=== PATIENT | male | born 1985 | race Caucasian/White ===

== ENCOUNTER → 2019-07-04 | Outpatient (CLI) | payer BC ==
[2019-07-04 12:19] LABS: Appearance,Urine Clear (Clear); Bilirubin,Urine Negative (Negative); Blood,Urine Negative (Negative); Color,Urine Yellow; Glucose,Urine (UA) Negative (Negative); Ketones,Urine 2+ (Negative); Leukocyte Esterase,Urine Negative (Negative); Nitrite,Urine Negative (Negative); PH, Urine 7.5 (5.0-8.0); Protein,Urine Trace (Negative); Specific Gravity,Urine 1.029 (1.001-1.035); Urobilinogen,Urine <2.0 mg/dL (<2.0)
[2019-07-04 12:47] LABS: Basophils % (A) 1 %; Eosinophils # (A) 0.3 k/uL (0-0.7); Eosinophils % (A) 8 %; HCT 48.8 % (39.0-53.0); HGB 15.8 gm/dL (13.0-17.5); Lymphocytes # (A) 1.3 k/uL (1.0-4.8); Lymphocytes % (A) 29 %; MCH 30.7 pg (25.0-35.0); MCHC 32.4 g/dL (31.0-37.0); MCV 94.8 fL (80.0-100.0); Mean Platelet Volume 6.8; Monocytes # (A) 0.3 k/uL (0-1.0); Monocytes % (A) 6 %; Neutrophils # (A) 2.2 k/uL (1.3-7.7); Neutrophils % (A) 52 %; Platelet Count 264 k/uL (150-450); RBC 5.14 m/uL (4.30-5.90); RDW 12.7 % (11.5-15.5); WBC 4.3 k/uL (3.8-10.6)
[2019-07-04 16:56] LABS: ALT 18 U/L (10-49); AST 26 U/L (14-35); African American GFR (CKD) 112.5 (60.0-200.0); Albumin/Globulin Ratio 1.95 (1.60-3.17); Alkaline Phosphatase 60 U/L (41-126); Calcium 9.4 mg/dL (8.7-10.3); Carbon Dioxide 29.1 mmol/L (21.6-31.8); Chloride 105 mmol/L (96-109); Cholesterol 204 mg/dL (0-200); Globulin 2.2 g/dL (1.6-3.3); Glucose 83 mg/dL (70-110); Potassium 4.4 mmol/L (3.5-5.5); Sodium 143 mmol/L (135-145); Total Bilirubin 2.6 mg/dL (0.3-1.2); Total Protein 6.5 g/dL (6.2-8.2); Triglycerides <50.0 mg/dL (0.0-149.0); VLDL Calculation 9.98 mg/dL (5.00-40.00)
== END | disposition home or self-care (01) ==
LOC: LABWHC1 11:00
PROVIDERS: ATTEND Family Medicine
DX: Z00.00 Encounter for general adult medical examination without abnormal findings (principal); N52.9 Male erectile dysfunction, unspecified; Z98.52 Vasectomy status
CPT/HCPCS: 36415; 80053; 80061; 81003; 82040; 84270; 84403; 84439; 84443; 85025

== ENCOUNTER → 2019-08-22 | Outpatient (CLI) | payer BC ==
[2019-08-22 16:22] LABS: Bilirubin, Conjugated 0.5 mg/dL (0.20-0.40); Bilirubin,Unconjugated 1.2 mg/dL; Total Bilirubin 1.7 mg/dL (0.2-1.2)
== END | disposition home or self-care (01) ==
LOC: LABWHC1 11:50
PROVIDERS: ATTEND Family Medicine
DX: R17 Unspecified jaundice (principal)
CPT/HCPCS: 36415; 82248

== ENCOUNTER 2019-09-05 20:13 | Emergency (ER) | payer BC ==
[2019-09-05 20:22] VITALS: BP 135/66; PULSE 107; RESP 17; TEMP 97.9
[2019-09-05] MEDS ORDERED: PROPARACAINE 0.5% OPHTH DROPS 15 ML BTL LEFT EYE STA (20:59)
--- NOTE | 2019-09-05 21:32 | ED ---
Eye Problem HPI - General Chief complaint: Eye Problems Stated complaint: L eye irritation Source: patient Mode of arrival: ambulatory Limitations: no limitations - History of Present Illness Initial comments: 34-year-old male presents emergency department for chief complaint of left eye irritation. Patient states today he was working with safety glasses to [employer]. he states there was a lot of sawdust that was coming from down when. patient states that he is unsure if something had gotten in his eye but throughout the afternoon he had eye irritation and photophobia. patient denies any redness swelling surrounding the eye or eye drainage. patient denies any headache nausea vomiting. she denies any loss of vision. patient states his eyes are very watery. patient was concerned that there was a piece of wood chip in his eye presents emergency department for further evaluation. patient states he has extensively irrigated his eyes throughout the day. remaining review of system negative. upon arrival patient appears well signs of acute distress however obvious photophobia. - Related Data Previous Rx's Medication Instructions Recorded Ciprofloxacin Ophth Soln [Cipro 1 drops LEFT EYE Q1HR 7 Days #1 09/05/19 0.3% Ophth Soln] bottle Allergies Allergy/AdvReac Type Severity Reaction Status Date / Time No Known Allergies Allergy Verified 09/05/19 20:22 Review of Systems ROS Statement: Those systems with pertinent positive or pertinent negative responses have been documented in the HPI. ROS Other: All systems not noted in ROS Statement are negative. Past Medical History Past Medical History: No Reported History History of Any Multi-Drug Resistant Organisms: MRSA Date of last positivie culture/infection: arm MDRO Source:: 2019 Past Surgical History: Orthopedic Surgery Additional Past Surgical History / Comment(s): nasal, foot Past Psychological History: No Psychological Hx Reported Smoking Status: Never smoker Past Alcohol Use History: None Reported Past Drug Use History: None Reported General Exam - General Exam Comments Initial Comments: General: The patient is awake and alert, in no distress, and does not appear acutely ill. Eye: +3 mm pupils are equal, round and reactive to light, extra-ocular movements are intact. No nystagmus. There is normal conjunctiva of the right eye. Patient has mild conjunctival injection of the left eye. No obvious ulceration or cloudiness of the cornea. No evidence of obvious foreign body. No signs of icterus. With fluorescein examination there is a circular area of uptake on the left lateral aspect of the eye less than 1/4cm. Patient has no evidence of FB. Photophobia, relief with proparacaine. Ears, nose, mouth and throat: There are moist mucous membranes and no oral lesions. . Cardiovascular: There is a regular rate and rhythm. No murmur, rub or gallop is appreciated. Respiratory: Lungs are clear to auscultation, respirations are non-labored, breath sounds are equal. No wheezes, stridor, rales, or rhonchi. Gastrointestinal: Soft, non-distended, non-tender abdomen without masses or organomegaly noted. There is no rebound or guarding present. Musculoskeletal: Normal ROM, no tenderness. Strength 5/5. Sensation intact. Pulses equal bilaterally 2+. Neurological: A&O x 3. CN II-XII intact grossly, There are no obvious motor or sensory deficits. Coordination appears grossly intact. Speech is normal. Skin: Skin is warm and dry and no rashes or lesions are noted. Psychiatric: Cooperative, appropriate mood & affect, normal judgment. Limitations: no limitations Course Vital Signs 09/05/19 20:19 Temperature 97.9 F Pulse Rate 107 H Respiratory 17 Rate Blood Pressure 135/66 O2 Sat by Pulse 98 Oximetry Medical Decision Making - Medical Decision Making 34-year-old male presenting for cc of left eye irriation. There is a circular uptake of fluorescein on physical examination. Patient does wear contact lenses. Given the appearance of the forcing uptake concern for possible corneal ulcer as differential diagnosis, with history there is concerned that this could be a corneal abrasion. Negative Magaly sign. Visual acuity within acceptable limits. Ophthalmology was consulted to talk to Dr. chris shah who recommended follow-up on Saturday and every hour ciprofloxacin drops. Patient is agreeable to this care plan and discharged appears well returned premeasured discussed patient was discharged with starter pack of medication. Discussed case with attending provider Dr. Langford is agreeable to plan and discharged. Disposition Clinical Impression: Corneal abrasion Disposition: HOME SELF-CARE Condition: Good Instructions (If sedation given, give patient instructions): Corneal Abrasion (ED), Corneal Ulcer (ED) Additional Instructions: Please use medication as discussed. Please follow-up with ophthalmology on Saturday at 8 AM. Address is seen below. Please continue to use the antibiotics drops every hour in the left eye instrumented morning given further instructions from ophthalmology. Please return to emergency room if the symptoms increase or worsen or for any other concerns. Prescriptions: Ciprofloxacin Ophth Soln [Cipro 0.3% Ophth Soln] 1 drops LEFT EYE Q1HR 7 Days #1 bottle Is patient prescribed a controlled substance at d/c from ED?: No Referrals: Luis Kingsley DO [Primary Care Provider] - 1-2 days Blu De León MD [STAFF PHYSICIAN] - 1-2 days Time of Disposition: 21:59
[2019-09-05] MEDS ORDERED: CIPROFLOXACIN 0.3% OPHTH SOLN 5 ML BTL LEFT EYE STA (21:44)
== END 2019-09-05 22:04 | disposition home or self-care (01) ==
LOC: EC 20:13
DX: S05.02XA Injury of conjunctiva and corneal abrasion without foreign body, left eye, initial encounter (principal); X58.XXXA Exposure to other specified factors, initial encounter
CPT/HCPCS: 99283

== ENCOUNTER → 2019-09-28 | Outpatient (CLI) | payer BC ==
[2019-09-28 17:57] LABS: Bilirubin, Conjugated 0.5 mg/dL (0.20-0.40); Bilirubin,Unconjugated 1.6 mg/dL; Total Bilirubin 2.1 mg/dL (0.2-1.2)
== END | disposition home or self-care (01) ==
LOC: LABWHC1 09:01
PROVIDERS: ATTEND Family Medicine
DX: R17 Unspecified jaundice (principal)
CPT/HCPCS: 36415; 82248

== ENCOUNTER 2020-05-08 22:15 | Emergency (ER) | payer BC ==
[2020-05-08] MEDS ORDERED: hydrOXYzine HCL 25 MG TAB PO STA (22:26)
--- NOTE | 2020-05-08 22:26 | ED ---
Allergic Reaction HPI - General Chief complaint: Allergic Reaction Stated complaint: Allergic Reaction Time Seen by Provider: 05/08/20 22:22 Source: patient, RN notes reviewed, old records reviewed Mode of arrival: ambulatory Limitations: no limitations - History of Present Illness Initial Comments: This is a 35-year-old male who presents today for ALLERGIC reaction noticing significant rash to upper torso back arms and face. No significant shortness of breath does not feel like his throat is closing. Patient is out for normal run tonight does not believe he was bit by anything unsure flatus exposed to anything this is running on normal path. Patient denying any shortness of breath symptoms just prior to arrival he did take Benadryl with no real improvement MD Complaint: allergic reaction, hives, facial swelling -: minutes(s) Exposure: unknown Symptoms: rash, itching, difficulty breathing, hoarseness Severity: moderate Treatment Prior to Arrival: none Previous Allergy History: none - Related Data Previous Rx's Medication Instructions Recorded Ciprofloxacin Ophth Soln [Cipro 1 drops LEFT EYE Q1HR 7 Days #1 09/05/19 0.3% Ophth Soln] bottle Famotidine [Pepcid] 20 mg PO BID #10 tablet 05/08/20 hydrOXYzine HCL [Atarax] 25 mg PO TID PRN #15 tab 05/08/20 predniSONE 50 mg PO DAILY #5 tab 05/08/20 Allergies Allergy/AdvReac Type Severity Reaction Status Date / Time No Known Allergies Allergy Verified 05/08/20 22:19 Review of Systems ROS Statement: Those systems with pertinent positive or pertinent negative responses have been documented in the HPI. ROS Other: All systems not noted in ROS Statement are negative. Past Medical History Past Medical History: No Reported History History of Any Multi-Drug Resistant Organisms: MRSA Date of last positivie culture/infection: arm MDRO Source:: 2019 Past Surgical History: Orthopedic Surgery Additional Past Surgical History / Comment(s): nasal, foot Past Psychological History: No Psychological Hx Reported Smoking Status: Never smoker Past Alcohol Use History: None Reported Past Drug Use History: None Reported General Exam Limitations: no limitations General appearance: alert, in no apparent distress, anxious Head exam: Present: atraumatic, normocephalic, normal inspection Eye exam: Present: normal appearance, PERRL, EOMI. Absent: scleral icterus, conjunctival injection, periorbital swelling ENT exam: Present: normal exam, mucous membranes moist, other (Uvula mildly increased in size) Neck exam: Present: normal inspection. Absent: tenderness, meningismus, lymphadenopathy Respiratory exam: Present: wheezes. Absent: respiratory distress, rales, rhonchi, stridor Cardiovascular Exam: Present: normal rhythm, tachycardia, normal heart sounds. Absent: systolic murmur, diastolic murmur, rubs, gallop, clicks GI/Abdominal exam: Present: soft, normal bowel sounds. Absent: distended, tenderness, guarding, rebound, rigid Extremities exam: Present: normal inspection, full ROM, normal capillary refill. Absent: tenderness, pedal edema, joint swelling, calf tenderness Back exam: Present: normal inspection Neurological exam: Present: alert, oriented X3, CN II-XII intact Psychiatric exam: Present: normal affect, normal mood Skin exam: Present: warm, dry, intact, normal color, diaphoretic, urticaria (Urticarial rash upper chest). Absent: rash Course Vital Signs 05/08/20 05/08/20 05/08/20 22:16 22:32 22:53 Temperature 98.0 F Pulse Rate 103 H 95 104 H Respiratory 22 Rate Blood Pressure 123/78 O2 Sat by Pulse 98 Oximetry 05/08/20 23:12 Temperature 97.7 F Pulse Rate 72 Respiratory 18 Rate Blood Pressure 119/73 O2 Sat by Pulse 98 Oximetry - Reevaluation(s) Reevaluation #1: Medical record is reviewed Patient is in no acute distress feeling much better with treatment here in the ER Medical Decision Making - Medical Decision Making 35 male DF for evaluation patient presents for ALLERGIC reaction symptoms improved versus resolved here in the ER patient good for discharge home return if symptoms for worsen or return Disposition Clinical Impression: Allergic reaction, Urticaria Disposition: HOME SELF-CARE Condition: Good Instructions (If sedation given, give patient instructions): Anaphylaxis (ED) Prescriptions: hydrOXYzine HCL [Atarax] 25 mg PO TID PRN #15 tab PRN Reason: Itching Famotidine [Pepcid] 20 mg PO BID #10 tablet predniSONE 50 mg PO DAILY #5 tab Is patient prescribed a controlled substance at d/c from ED?: No Referrals: uLis Kingsley DO [Primary Care Provider] - 1-2 days
[2020-05-08] MEDS ORDERED: FAMOTIDINE 20 MG/2 ML VIAL IV STA (22:28)
[2020-05-08] MEDS ORDERED: SODIUM CHLORIDE 0.9% 1,000 ML IV STA (22:28)
[2020-05-08] MEDS ORDERED: DEXAMETHASONE SOD PHOSPHATE 10 MG/ML 1 ML VIAL IV STA (22:28)
[2020-05-08] MEDS ORDERED: diphenhydrAMINE 50 MG/ML 1 ML VIAL IVP STA (22:28)
[2020-05-08] MEDS ORDERED: RACEPINEPHRINE 2.25% NEB 0.5 ML NEBU INHALATION STA (22:29)
[2020-05-08 23:13] VITALS: BP 119/73; PULSE 72; RESP 18; TEMP 97.7
== END 2020-05-08 23:13 | disposition home or self-care (01) ==
LOC: EC 22:15
DX: T78.40XA Allergy, unspecified, initial encounter (principal); L50.9 Urticaria, unspecified; R61 Generalized hyperhidrosis; Z86.14 Personal history of Methicillin resistant Staphylococcus aureus infection
CPT/HCPCS: 94640; 99285; 96374; 96375 ×2; 96361; J1200; J1100

== ENCOUNTER 2023-03-21 23:00 | Emergency (ER) | payer BC, OTHER ==
[2023-03-21 23:05] VITALS: TEMP 98
[2023-03-22] MEDS ORDERED: SODIUM CHLORIDE 0.9% 1,000 ML IV STA (00:59)
[2023-03-22] MEDS ORDERED: ONDANSETRON 4 MG/2 ML VIAL IVP STA (00:59)
[2023-03-22] MEDS ORDERED: PANTOPRAZOLE 40 MG/10 ML VIAL IVP STA (00:59)
[2023-03-22] MEDS ORDERED: MAG HYDROX/AL HYDROX/SIMETH 30 ML, HYOSCYAMINE ELIXIR 10 ML, LIDOCAINE VISCOUS 2% 10 ML PO STA ×3 (01:00)
[2023-03-22] MEDS ORDERED: MORPHINE SULFATE 4 MG/ML SYRINGE IVP STA ×2 (01:00→04:31)
--- NOTE | 2023-03-22 01:12 | ED ---
General Adult HPI - General Chief complaint: Abdominal Pain Stated complaint: Shoulder Pain, Stomach Pain Time Seen by Provider: 03/22/23 00:38 Source: patient, RN notes reviewed, old records reviewed Mode of arrival: ambulatory Limitations: no limitations - History of Present Illness Initial comments: Patient is a 38-year-old male with no significant past medical history who presents emergency department with 2 chief complaints. Primary complaint is abdominal pain. Has been ongoing since Saturday. 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 States it is in the epigastric no radiation. Mild nausea. Improves with eating, worse and not eating. Now has no appetite. Patient typically does not take Tylenol or Motrin but for the abdominal pain he was taking it [id number] but stopped taking it yesterday as it was not improving and was concerned it may be making it worse.Denies any diarrhea or constipation. Denies any urinary complaints. Denies any chest pain. Denies any shortness of breath. Patient's other acute complaint is left shoulder pain which is acute on chronic. Has had left shoulder pain for a while, however over the last 10-15 days has gotten worse. Discussed the pain as a shooting sensation down the posterior aspect of his left shoulder. Does have family members were in the medical profession and they believe it is likely related to radiculopathy. Does have follow-up tomorrow with a specialist. Denies any chest pain. The shoulder pain is worse with movement. No other acute complaints at this time. Patient did run a half marathon last weekend. States he remained hydrated and denies any change in color of his urine. No muscle cramping.Denies any history of abdominal surgeries. - Related Data Previous Rx's Medication Instructions Recorded Ciprofloxacin Ophth Soln [Cipro 1 drops LEFT EYE Q1HR 7 Days #1 09/05/19 0.3% Ophth Soln] bottle Famotidine [Pepcid] 20 mg PO BID #10 tablet 05/08/20 hydrOXYzine HCL [Atarax] 25 mg PO TID PRN #15 tab 05/08/20 predniSONE 50 mg PO DAILY #5 tab 05/08/20 Famotidine [Pepcid] 20 mg PO DAILY 28 Days #28 tablet 03/22/23 methocarbamoL [Robaxin] 500 mg PO BID PRN 7 Days #14 tab 03/22/23 Allergies Allergy/AdvReac Type Severity Reaction Status Date / Time No Known Allergies Allergy Verified 03/21/23 23:05 Review of Systems ROS Statement: Those systems with pertinent positive or pertinent negative responses have been documented in the HPI. Review of Systems: CONST: Denies fever EYES: Denies blurry vision ENT: Denies nasal congestion C/V: Denies Chest pain RESP: Denies shortness of breath GI: Endorses abdominal pain : Denies dysuria SKIN: Denies rash. MSK: Endorses left shoulder pain NEURO: Denies headache ROS Other: All systems not noted in ROS Statement are negative. Past Medical History Past Medical History: No Reported History History of Any Multi-Drug Resistant Organisms: MRSA Date of last positivie culture/infection: arm MDRO Source:: 2019 Past Surgical History: Orthopedic Surgery Additional Past Surgical History / Comment(s): nasal, foot Past Psychological History: No Psychological Hx Reported Smoking Status: Never smoker Past Alcohol Use History: None Reported Past Drug Use History: None Reported General Exam - General Exam Comments Initial Comments: General: Appears in no acute distress. HEAD: Normal with no signs of head trauma. EYES: PERRLA, EOMI, conjunctiva normal, no discharge. ENT: Hearing grossly intact, normal oropharynx. RESPIRATORY: Clear breath sounds bilaterally. No wheezes, rales, or rhonchi. C/V: Regular rate and rhythm. S1 and S2 auscultated, no edema, peripheral pulses 2+ and intact throughout ABD: Abdomen soft, nondistended. Mildly tender to palpation epigastric region. No guarding. No peritoneal signs. No rebound tenderness. No lower abdominal pain. EXT: Normal range of motion, no obvious deformity. Pain with range of motion of the left shoulder. Describes it as along the posterior aspect of the shoulder. Somewhat worse with movement of his neck as well. No neck pain or injury. No midline cervical, thoracic, lumbar spine tenderness to palpation. SKIN: No rashes or lesions observed on exposed skin. NEURO: Alert and oriented x 4. Cranial nerves II-XII intact. No focal sensory or strength deficits. Limitations: no limitations Course Vital Signs 03/21/23 03/22/23 03/22/23 23:02 02:00 04:00 Temperature 98.0 F Pulse Rate 78 56 L 61 Respiratory 18 16 18 Rate Blood Pressure 147/82 137/83 115/75 O2 Sat by Pulse 96 100 99 Oximetry Medical Decision Making - Medical Decision Making Was pt. sent in by a medical professional or institution (, PA, POULTRY FEED SUPERVISOR, urgent care, hospital, or usp...) When possible be specific @ -No Did you speak to anyone other than the patient for history (EMS, parent, family, police, friend...)? What history was obtained from this source @ -No Did you review nursing and triage notes (agree or disagree)? Why? @ -I reviewed and agree with nursing and triage notes Were old charts reviewed (outside hosp., previous admission, EMS record, old EKG, old radiological studies, urgent care reports/EKG's, usp records)? Report findings @ -No old charts were reviewed Differential Diagnosis (chest pain, altered mental status, abdominal pain women, abdominal pain men, vaginal bleeding, weakness, fever, dyspnea, syncope, headache, dizziness, GI bleed, back pain, seizure, CVA, palpatations, mental health, musculoskeletal)? @ -Differential Abdominal Pain Men: Appendicitis, cholecystitis, diverticulosis, ischemic bowel, pancreatitis, hepatitis, UTI, gastroenteritis, AAA, incarcerated hernia, bowel obstruction, constipation, inflammatory bowel, hepatitis, peptic ulcer disease, splenic infarction, perforated viscus, testicular torsion, this is not meant to be an all-inclusive list Differential Musculoskeletal Muscular strain, contusion, ligament sprain, fracture, arthritis, septic arthritis, bursitis, cellulitis, muscle spasm, nerve compression, DVT, arterial occlusion, herpes zoster, electrolyte abnormality, tumor.... This is not meant to be in all inclusive list EKG interpreted by me (3pts min.). @ -As above X-rays interpreted by me (1pt min.). @ -Chest x-ray reveals no obvious acute cardiopulmonary process. Shoulder x- ray reveals no obvious acute process. CT interpreted by me (1pt min.). @ -None done U/S interpreted by me (1pt. min.). @ -Gallbladder ultrasound interpreted by radiology reveals no evidence of hep atobiliary disease. Normal gallbladder. What testing was considered but not performed or refused? (CT, X-rays, U/S, labs)? Why? @ -CT imaging of the neck was considered as he does appear to have a cervical radiculopathy-type pain in the left shoulder. However we did discuss animated joint decision not to obtain it at this time as he is following up with a sp ecialist tomorrow like to see what imaging that they would want. We will obtain an x-ray of the left shoulder at this time. What meds were considered but not given or refused? Why? @ -None Did you discuss the management of the patient with other professionals (professionals i.e. , PA, POULTRY FEED SUPERVISOR, lab, RT, psych nurse, social sciences research scientist, job trainer, teacher, sales officer, director of casework)? Give summary @ -No Was smoking cessation discussed for >3mins.? @ -No Was critical care preformed (if so, how long)? @ -No Were there social determinants of health that impacted care today? How? (Homelessness, low income, unemployed, alcoholism, drug addiction, transportation, low edu. Level, literacy, decrease access to med. care, usp, rehab)? @ -No Was there de-escalation of care discussed even if they declined (Discuss DNR or withdrawal of care, Hospice)? DNR status @ -No What co-morbidities impacted this encounter? (DM, HTN, Smoking, COPD, CAD, Cancer, CVA, ARF, Chemo, Hep., AIDS, mental health diagnosis, sleep apnea, morbid obesity)? @ -None Was patient admitted / discharged? Hospital course, mention meds given and route, prescriptions, significant lab abnormalities, going to OR and other pertinent info. @ -Based on the patient's presentation and physical exam, I do believe he is having a cervical radiculopathy-type pain explained to her left shoulder pain. No obvious traumatic injury. Joint decision making was made to not pursue CT imaging of the cervical spine at this time but we will obtain an x-ray of the left shoulder. Patient was in agreement this plan. He does have follow-up with specialist tomorrow and I recommended that he follow up with him further. As for the patient's abdominal pain, and concern for an acute intra-abdominal process at this time and we will obtain belly labs as well as an upright chest x-ray to evaluate for free air under the diaphragm as well as a screening EKG. He was in agreement this plan. He will be symptomatically treated with 1 L fluid bolus, GI cocktail, IV Protonix, Zofran, morphine. Vital signs are within acceptable limits. Patient's laboratories are within acceptable limits. Imaging is unremarkable. On reevaluation, patient states that the GI cocktail completely resolved his abdominal symptoms. We did discuss his workup. I believe it is safe for him to be discharged home. Likely has GERD or possible gastritis versus sick ulcer disease. Recommended follow-up with GI services. He was in agreement this plan. As we discussed earlier, he will follow up with his retail seasonal specialist for his cervical radiculopathy. Strict return precautions were discussed. He was in agreement this plan. He'll be discharged home with a starter pack of Tylenol 3's as well as a prescription for famotidine and Robaxin. I will provide the patient with a prescription for Robaxin, famotidine. I instructed the patient to follow up with their PCP in the next 1-3 days. I provided contact information for follow up with GI. I explained that the patient should return to the emergency department if they experience any worsening symptoms. Strict return precautions were discussed with the patient. The patient expressed understanding of these instructions. I answered all questions that the patient had. The patient was discharged home in good condition with their prescriptions and follow up information. Undiagnosed new problem with uncertain prognosis? @ -No Drug Therapy requiring intensive monitoring for toxicity (Heparin, Nitro, Insulin, Cardizem)? @ -No Were any procedures done? @ -No Diagnosis/symptom? @ -Cervical radiculopathy Acute, or Chronic, or Acute on Chronic? @ -Acute Uncomplicated (without systemic symptoms) or Complicated (systemic symptoms)? @ -Uncomplicated Side effects of treatment? @ -none Exacerbation, Progression, or Severe Exacerbation] @ -no Poses a threat to life or bodily function? @ -no Diagnosis/symptom? @ -Abdominal pain of unknown cause, suspect GERD versus gastritis Acute, or Chronic, or Acute on Chronic? @ -Acute Uncomplicated (without systemic symptoms) or Complicated (systemic symptoms)? @ -unComplicated Side effects of treatment? @ -none Exacerbation, Progression, or Severe Exacerbation] @ -no Poses a threat to life or bodily function? @ -no - Lab Data Result diagrams: 03/22/23 01:11 03/22/23 01:11 Lab Results 03/22/23 03/22/23 03/22/23 Range/Units 01:11 01:11 01:11 WBC 11.0 H (3.8-10.6) k/uL RBC 5.02 (4.30-5.90) m/uL Hgb 16.1 (13.0-17.5) gm/dL Hct 46.6 (39.0-53.0) % MCV 92.8 (80.0-100.0) fL MCH 32.2 (25.0-35.0) pg MCHC 34.6 (31.0-37.0) g/dL RDW 12.4 (11.5-15.5) % Plt Count 266 (150-450) k/uL MPV 7.1 Neutrophils % 73 % Lymphocytes % 17 % Monocytes % 7 % Eosinophils % 1 % Basophils % 0 % Neutrophils # 8.0 H (1.3-7.7) k/uL Lymphocytes # 1.8 (1.0-4.8) k/uL Monocytes # 0.8 (0-1.0) k/uL Eosinophils # 0.1 (0-0.7) k/uL Basophils # 0.1 (0-0.2) k/uL PT 11.0 (9.0-12.0) sec INR 1.0 (<1.2) APTT 23.6 (22.0-30.0) sec Sodium 139 (137-145) mmol/L Potassium 4.3 (3.5-5.1) mmol/L Chloride 101 (98-107) mmol/L Carbon Dioxide 30 (22-30) mmol/L Anion Gap 8 mmol/L BUN 14 (9-20) mg/dL Creatinine 0.81 (0.66-1.25) mg/dL Est GFR (CKD-EPI)AfAm >90 (>60 ml/min/1.73 sqM) Est GFR (CKD-EPI)NonAf >90 (>60 ml/min/1.73 sqM) Glucose 99 (74-99) mg/dL Calcium 9.6 (8.4-10.2) mg/dL Total Bilirubin 1.2 (0.2-1.3) mg/dL AST 16 L (17-59) U/L ALT 16 (4-49) U/L Alkaline Phosphatase 54 (38-126) U/L Creatine Kinase 44 L (55-170) U/L Total Protein 7.1 (6.3-8.2) g/dL Albumin 4.3 (3.5-5.0) g/dL Amylase 60 (30-110) U/L Lipase 41 (23-300) U/L Urine Color Urine Appearance (Clear) Urine pH (5.0-8.0) Ur Specific St[place] (1.001-1.035) Urine Protein (Negative) Urine Glucose (UA) (Negative) Urine Ketones (Negative) Urine Blood (Negative) Urine Nitrite (Negative) Urine Bilirubin (Negative) Urine Urobilinogen (<2.0) mg/dL Ur Leukocyte Esterase (Negative) 03/22/23 Range/Units 01:51 WBC (3.8-10.6) k/uL RBC (4.30-5.90) m/uL Hgb (13.0-17.5) gm/dL Hct (39.0-53.0) % MCV (80.0-100.0) fL MCH (25.0-35.0) pg MCHC (31.0-37.0) g/dL RDW (11.5-15.5) % Plt Count (150-450) k/uL MPV Neutrophils % % Lymphocytes % % Monocytes % % Eosinophils % % Basophils % % Neutrophils # (1.3-7.7) k/uL Lymphocytes # (1.0-4.8) k/uL Monocytes # (0-1.0) k/uL Eosinophils # (0-0.7) k/uL Basophils # (0-0.2) k/uL PT (9.0-12.0) sec INR (<1.2) APTT (22.0-30.0) sec Sodium (137-145) mmol/L Potassium (3.5-5.1) mmol/L Chloride (98-107) mmol/L Carbon Dioxide (22-30) mmol/L Anion Gap mmol/L BUN (9-20) mg/dL Creatinine (0.66-1.25) mg/dL Est GFR (CKD-EPI)AfAm (>60 ml/min/1.73 sqM) Est GFR (CKD-EPI)NonAf (>60 ml/min/1.73 sqM) Glucose (74-99) mg/dL Calcium (8.4-10.2) mg/dL Total Bilirubin (0.2-1.3) mg/dL AST (17-59) U/L ALT (4-49) U/L Alkaline Phosphatase (38-126) U/L Creatine Kinase (55-170) U/L Total Protein (6.3-8.2) g/dL Albumin (3.5-5.0) g/dL Amylase (30-110) U/L Lipase (23-300) U/L Urine Color Light Yellow Urine Appearance Clear (Clear) Urine pH 5.5 (5.0-8.0) Ur Specific [place] 1.012 (1.001-1.035) Urine Protein Negative (Negative) Urine Glucose (UA) Negative (Negative) Urine Ketones Negative (Negative) Urine Blood Negative (Negative) Urine Nitrite Negative (Negative) Urine Bilirubin Negative (Negative) Urine Urobilinogen <2.0 (<2.0) mg/dL Ur Leukocyte Esterase Negative (Negative) - EKG Data -: EKG Interpreted by Me EKG Comments: 12-lead Electrocardiogram Interpretation Note EKG was reviewed and interpreted by myself. 12-lead ECG performed at 0200 is interpreted by me as revealing sinus bradycardia at a rate of 54 beats per minute. Wenden is normal. NE interval is 138 ms, QRS duration is 108 ms, QTc is 386 ms.. There were no ST or T wave abnormalities to suggest myocardial is chemia or injury. R wave progression across the precordium was satisfactory. By my interpretation this EKG is non-diagnostic for acute ischemia. Disposition Clinical Impression: GERD (gastroesophageal reflux disease), Abdominal pain of unknown cause, Cervical radiculopathy Disposition: HOME SELF-CARE Condition: Good Instructions (If sedation given, give patient instructions): GERD (Gastroesophageal Reflux Disease) (ED), Cervical Radiculopathy (ED), Abdominal Pain (ED) Prescriptions: Famotidine [Pepcid] 20 mg PO DAILY 28 Days #28 tablet methocarbamoL [Robaxin] 500 mg PO BID PRN 7 Days #14 tab PRN Reason: Pain Is patient prescribed a controlled substance at d/c from ED?: No Referrals: None,Stated [Primary Care Provider] - 1-2 days Vivian Whitaker MD [STAFF PHYSICIAN] - 1-2 days Time of Disposition: 04:21
[2023-03-22 01:21] LABS: Basophils # (A) 0.1 k/uL (0-0.2); Basophils % (A) 0 %; Eosinophils # (A) 0.1 k/uL (0-0.7); Eosinophils % (A) 1 %; HCT 46.6 % (39.0-53.0); HGB 16.1 gm/dL (13.0-17.5); Lymphocytes # (A) 1.8 k/uL (1.0-4.8); Lymphocytes % (A) 17 %; MCH 32.2 pg (25.0-35.0); MCHC 34.6 g/dL (31.0-37.0); MCV 92.8 fL (80.0-100.0); Mean Platelet Volume 7.1; Monocytes # (A) 0.8 k/uL (0-1.0); Monocytes % (A) 7 %; Neutrophils % (A) 73 %; Platelet Count 266 k/uL (150-450); RBC 5.02 m/uL (4.30-5.90); RDW 12.4 % (11.5-15.5)
[2023-03-22 01:28] LABS: Partial Thromboplastin Time 23.6 sec (22.0-30.0)
[2023-03-22 01:59] LABS: Appearance,Urine Clear (Clear); Bilirubin,Urine Negative (Negative); Blood,Urine Negative (Negative); Color,Urine Light Yellow; Glucose,Urine (UA) Negative (Negative); Ketones,Urine Negative (Negative); Leukocyte Esterase,Urine Negative (Negative); Nitrite,Urine Negative (Negative); PH, Urine 5.5 (5.0-8.0); Protein,Urine Negative (Negative); Specific Gravity,Urine 1.012 (1.001-1.035); Urobilinogen,Urine <2.0 mg/dL (<2.0)
[2023-03-22] MEDS ORDERED: KETOROLAC 15 MG/ML 1 ML VIAL IVP STA (02:43)
[2023-03-22 03:43] LABS: Albumin 4.3 g/dL (3.5-5.0)
[2023-03-22 04:05] VITALS: BP 115/75; PULSE 61; RESP 18
[2023-03-22 04:09] LABS: ALT 16 U/L (4-49); AST 16 U/L (17-59); African American GFR (CKD) >90 (>60 ml/min/1.73 sqM); Alkaline Phosphatase 54 U/L (38-126); Amylase 60 U/L (30-110); Anion Gap 8 mmol/L; Blood Urea Nitrogen 14 mg/dL (9-20); Calcium 9.6 mg/dL (8.4-10.2); Carbon Dioxide 30 mmol/L (22-30); Chloride 101 mmol/L (98-107); Creatine Kinase 44 U/L (55-170); Glucose 99 mg/dL (74-99); Lipase 41 U/L (23-300); Non-African American GFR(CKD) >90 (>60 ml/min/1.73 sqM); Potassium 4.3 mmol/L (3.5-5.1); Sodium 139 mmol/L (137-145); Total Bilirubin 1.2 mg/dL (0.2-1.3); Total Protein 7.1 g/dL (6.3-8.2)
[2023-03-22] MEDS ORDERED: ACET/COD 300 MG/30 MG STARTER PACK 6 TAB BTL PO STA (04:33)
--- NOTE | 2023-03-22 06:05 | US ---
EXAM: US Abdomen Limited, Right Upper Quadrant CLINICAL HISTORY: ITS.REASON US Reason: n/v/abd pain TECHNIQUE: Real-time ultrasound of the right upper quadrant with image documentation. COMPARISON: No relevant prior studies available. FINDINGS: Liver: Unremarkable. No mass. Gallbladder: Unremarkable. No gallstones. Common bile duct: Unremarkable as visualized. No stones. Pancreas: Unremarkable as visualized. Right kidney: Unremarkable. No hydronephrosis. IMPRESSION: Normal right upper quadrant ultrasound.
--- NOTE | 2023-03-22 06:14 | XR ---
EXAM: XR Chest, 1 View CLINICAL HISTORY: ITS.REASON XR Reason: upright. eval for air under diaphragm TECHNIQUE: Frontal view of the chest. COMPARISON: No relevant prior studies available. FINDINGS: Lungs: No consolidation. No overt edema. Pleural space: No pleural effusion. No pneumothorax. Heart: Unremarkable. No cardiomegaly. Upper abdomen: No air under the diaphragm. IMPRESSION: No abdominal free air identified.
--- NOTE | 2023-03-22 06:15 | XR ---
EXAM: XR Left Shoulder Complete, 2 or More Views CLINICAL HISTORY: ITS.REASON XR Reason: pain TECHNIQUE: Two or more views of the left shoulder. COMPARISON: No relevant prior studies available. FINDINGS: Bones/joints: No fracture or malalignment. Mild degenerative changes at the AC joint. Soft tissues: Unremarkable. IMPRESSION: No fracture or malalignment.
== END 2023-03-22 04:45 | disposition home or self-care (01) ==
LOC: EC 23:00
DX: M54.12 Radiculopathy, cervical region (principal); R10.9 Unspecified abdominal pain; K21.9 Gastro-esophageal reflux disease without esophagitis
CPT/HCPCS: 36415; 93005; 80053; 82150; 82550; 83690; 85025; 85610; 85730; 81003; 73020; 71045; 76705; 99285; 96374; 96375 ×4; 96361; J2270; J2405; J1885; C9113